=== PATIENT | female | born 1975 | race Caucasian/White ===

== ENCOUNTER 2021-01-06 14:52 | Outpatient (CLI) | payer OTHER, SELFPAY ==
--- NOTE | ~2021-01-06 | XR_ITS ---
XR lumbar spine 2-3V DATE: 01/06/2021 15:08 INDICATION: Low back pain following lifting injury one week ago TECHNIQUE: AP, lateral, coned lateral lumbosacral views COMPARISON: None FINDINGS: No fracture or bone destruction is evident. The included lower thoracic and lumbar pedicles are intact. Moderately prominent degenerative disc disease at T12-L1. There is minimal degenerative spurring of the lumbar spine and relative preservation of lumbar disc s paces. The sacroiliac joints are intact. IMPRESSION: Moderately prominent degenerative disc disease at T12-L1 Mild degenerative disc disease of the lumbar spine No fracture Reviewed, dictated and finalized at location A.
== END 2021-01-06 14:53 | disposition home or self-care (01) ==
PROVIDERS: PCP Family Medicine; Visit Provider Physician Assistant
DX: M47.815 Spondylosis without myelopathy or radiculopathy, thoracolumbar region (principal)
CPT/HCPCS: 72100

== ENCOUNTER 2024-09-28 13:06 | Outpatient (CLI) | payer OTHER, SELFPAY ==
--- OUTSIDE RECORDS SUMMARY | 2024-09-28 13:09 | XMS_ITS | Clinical Summary ---
Author Organization [employer] [facility] [employer] Address [address] [place] [address] Care Team Providers Care Chief Transfer And Pumphouse Operator Name Role Phone Carlos Eduardo Zimmerman MD Primary Care Provider [phone] Source Comments [facility] [employer],non-owned Affiliates and Associated Physician Practices is amultiple site organization consisting of ambulatory clinics and hospital sitesin [place], [place], [place] and [place]. This disclosure is being madepursuant to the Care Everywhere program and may not contain all information available regarding this patient. Last updated 18.[employer] [facility] Allergies No known active allergies Medications * Be aware that medications may not be up to date on this document. Alwaysverify current medications with the patient. Medication Sig Dispensed Refills Start Date End Date Status FLUoxetine (PROZAC) 40 MG capsule Take 40 mg by mouth once daily Active fluconazole (DIFLUCAN) 150 MG tablet Take one tab po x1 if symptoms occur, may repeat in 72 hours if symptoms persist 2 tablet 08/30/2019 Active Social History Tobacco Use Types Packs/Day Years Used Date Smoking Tobacco: Never Smokeless Tobacco: Never Sex and Gender Information Value Date Recorded Sex Assigned at Not on file Gender Identity Not on file Sexual Orientation Not on file Last Filed Vital Signs Vital Sign Reading Time Taken Comments Blood Pressure 118/78 08/30/2019 1:05 PM NEEDLE LOOM TENDER Pulse 77 08/30/2019 1:05 PM NEEDLE LOOM TENDER Temperature 36.8 ??C (98.3 ??F) 08/30/2019 1:05 PM CS T Respiratory Rate 20 08/30/2019 1:05 PM NEEDLE LOOM TENDER Oxygen Saturation 98% 08/30/2019 1:05 PM NEEDLE LOOM TENDER Inhaled Oxygen Concentration - - Weight 86.2 kg (190 lb) 08/30/2019 1:05 PM NEEDLE LOOM TENDER Height 162.6 cm (5' 4 ) 08/30/2019 1:05 PM NEEDLE LOOM TENDER Body Mass Index 32.61 08/30/2019 1:05 PM NEEDLE LOOM TENDER Plan of Treatment Health Maintenance Due Date Last Done Comments COLOGUARD (AGES 45-75) - COLON CA SCREENING 1974 COLON MONITORING 1974 COLONOSCOPY - COLON CA SCREENING 1974 CT COLONOGRAPHY - COLON CA SCREENING 1974 Colorectal Cancer Screening 1974 FIT - COLON CA SCREENING 1974 FLEX SIG - COLON CA SCREENING 1974 LIPID TESTING 1974 MAMMOGRAM 1974 PAP SMEAR 1974 HIV SCREENING 1989 HEPATITIS C SCREENING 11/04/1992 DTAP/TDAP/TD VACCINES (1 - Tdap) 1993 HEPATITIS B VACCINE (1 of 3 - 19+ 3-dose series) 1993 SCREENING FOR DIABETES 08/30/2019 COVID-19 VACCINE (1 - 2023-2 5 season) 2024 INFLUENZA VACCINE (#1) 2024 0 (Done Outside Per Patient) DEPRESSION SCREENING 08/29/2024 ZOSTER VACCINE (1 of 2) 2024 HIB VACCINE Aged Out No longer eligi ble based on patient's age to complete this topic HPV VACCINE Aged Out No longer eligi ble based on patient's age to complete this topic MENINGOCOCCAL (Group B) VACCINE Aged Out No longer eligible based on patient's age to complete this topic MENINGOCOCCAL VACCINE Aged Out No robby marek eligible based on patient's age to complete this topic PNEUMOCOCCAL VACCINE Aged Out No long er eligible based on patient's age to complete this topic Care Teams Chief Transfer And Pumphouse Operator Relationship Specialty Start Date End Date Carlos Eduardo Zimmerman MD [address] [place] [address] PCP - General Family Medicine 08/30/19
--- OUTSIDE RECORDS SUMMARY | 2024-09-28 13:09 | XMS_ITS | Clinical Summary ---
Author Organization [facility] Care Team Providers Care Fruit And Vegetable Classer Name Role Phone Unavailable Primary Care Provider Unavailabl e Social History Tobacco Use Types Packs/Day Years Used Date Smoking Tobacco: Never Assessed Comments Unknown Sex and Gender Information Value Date Recorded Sex Assigned at Not on file Legal Sex Female 3:37 PM NEON SIGN WORKER Gender Identity Not on file Sexual Orientation Not on file Plan of Treatment Health Maintenance Due Date Last Done Comments Hepatitis C Virus (HCV) Screening 1974 TdaP Immunization 1974 Pap Smear 11/10/1995 Cervical Cancer Screening (CCS) 2004 HPV/Cotest 2004 Discussion re Starting/Frequency of Mammograms 2014 Hepatitis B Immunization (3 of 3 - 19+ 3-dose series) 11/19/2014 09/24/2014, 02/19/2014 Colonoscopy 11/10/2019 Colorectal Cancer Screening 11/10/2019 Influenza Immunization (#1) 04/29/202405/29, 08/12/2015 SARS-COV-2 Immunization ( season) 2024 Cologuard 2024 Immunochemical Fecal Occult Blood 2024 Respiratory Syncytial Virus (RSV) Immunization (Adult) (1 - 1-dose 75+ series) 2049 Meningococcal Immunization (ACWY) Aged Out No longer eligible b ased on patient's age to complete this topic Pneumococcal Immunization Combined Aged Out No longer eligible b ased on patient's age to complete this topic Rotavirus Immunization Aged Out No lo nger eligible based on patient's age to complete this topic
--- OUTSIDE RECORDS SUMMARY | 2024-09-28 13:09 | XMS_ITS | Continuity of Care Document ---
Author Organization [facility] Address [address] [place] [address] [address] [place] [address] Phone Care Team Providers Care District Medical Examiner Name Role Phone Kimball OD, Mirza Unavailable Unavailable Procedures Procedure Date Eye Exam, New Patient Refraction Advance Directives Directive Yes / No Effective Date File Name No Information Encounters Encounter Description Practice Location Reason(s) For Visit Diagnoses Date Provider Providers Copied on Encounter [facility], [address] [place] [address] [address], [place], [place], [id number], [place] tel:[phone] [facility] No Information [phone] Kimball OD Mirza. [address] [facility] [address] , [address], [place], [address], [place]. tel:[phone] Referring Provider: Jamir Ordoñez [address] [facility], [place], [place], [facility]. tel:[phone] Family History Family Member Type Diagnosis Age At Onset No Information Payers Payer name Insurance type Covered constitution party ID Authoriza tion(s) Medicaid [facility] [id number] Social History Type Description Quantity Date Captured Comments Sex Female Smoking Status No Information Chief Complaint And Reason For Visit No Information Reason For Referral Reason For Referral No Information History Of Present Illness Encounter Date Complaint History Of Prese nt Illness No Information Functional Status Date Functional Assessmen t No Information Instructions Date Instruction Additional Infor mation No Information Assessments Type Assessment Date No Information Patient Care Teams Name Effective Dates (start - stop) Status Members No Information
--- OUTSIDE RECORDS SUMMARY | 2024-09-28 13:09 | XMS_ITS | Clinical Summary ---
Author Organization [facility] Address [address] [place] [phone] Phone Care Team Providers Care Group President Name Role Phone Carlos Eduardo Zimmerman MD Primary Care Provider Encounters Date Type Department Care Team Description 08/15/2024 2:45 PM VARNISH MIXER - 08/15/2024 11:59 PM VARNISH MIXER Hospital Encounter [facility] [address] [place] [id number] Screening mammogram, encounter for Discharge Disposition: Discharge to home or self care from Last 3 Months Medical History Medical History Date Comments Smoking previous Family History Medical History Relation Name Comments Ovarian cancer Mother Breast cancer Paternal Grandmother Thyroid cancer Neg Hx Relation Name Status Comments Mother Paternal Grandmother Social History Tobacco Use Types Packs/Day Years Used Date Smoking Tobacco: Never Assessed Comments Unknown Sex and Gender Information Value Date Recorded Sex Assigned at Not on file Legal Sex Female 6:24 AM CDT Gender Identity Not on file Sexual Orientation Not on file Obstetrics History Para Term AB IAB SAB Ectopic Multiple Livin g Live Births 3 3 3 Date Outcome GA Total Labor Labor/2nd/3rd Weight Sex Type Anes PTL Jennifer A1 A5 Name Clin Term Term Term Last Filed Vital Signs Vital Sign Reading Time Taken Comments Blood Pressure - - Pulse - - Temperature - - Respiratory Rate - - Oxygen Saturation - - Inhaled Oxygen Concentration - - Weight - - Height 162.6 cm (5' 4 ) 08/15/2024 3:00 PM VARNISH MIXER Body Mass Index - - Plan of Treatment Health Maintenance Due Date Last Done Comments Cervical Cancer Screening 1974 Colon Cancer Screening-Colonoscopy 1974 Depression Screening 1974 Hepatitis C Screening 1974 DTaP/Tdap/Td Vaccine (1 - Tdap) 1985 Regular Well Visit/Exam 18-64 1992 Covid-19 Vaccine (2023-2 5 season) 2024 10/14/2020, 09/16/2020 Influenza Vaccine (#1) 2024 , 06/15/2016, 08/12/2015 Breast Cancer Screening-Mammogram 08/15/2025 08/15/2024 Pneumococcal vaccine <65 Aged Out No longer eligible based on patient's age to complete this topic Procedures Procedure Name Priority Date/Time Associated Diagnosis Comments SCREENING MAMMOGRAM BILATERAL W KENRICK Schedule Routine, Read Routine (OP Routine) 08/15/2024 3:06 PM VARNISH MIXER Screening mammogram, encounter for from Last 3 Months Results * Screening Mammogram Bilateral W Kenrick (08/15/2024 3:06 PM VARNISH MIXER) Anatomical Region Laterality Modality Breast Bilateral Mammography 08/30/2024 8:08 AM VARNISH MIXER Impressions 08/30/2024 8:08 AM VARNISH MIXER No evidence of malignancy in either breast. FINAL ASSESSMENT: BI-RADS Category 1: Negative. RECOMMENDATION: Recommend return for annual screening mammogram in 12 months. ?? Electronically signed by: Cy Mac M.D. Narrative 08/30/2024 8:08 AM VARNISH MIXER EXAMINATION: BILATERAL SCREENING MAMMOGRAM COMPARISON: Prior imaging available for comparison. ??New baseline mammogram. TECHNIQUE: Full-field 2D and digital breast tomosynthesis (DBT) images were obtained. CAD was utilized. BREAST PARENCHYMAL COMPOSITION: ??There are scattered areas of fibroglandular density. FINDINGS: There is no suspicious mass, calcification, or distortion in either breast. us Self Screening Mammogram IMG MAMMO PROCEDURES Fi nal Result from Last [address] [place] [address] [facility] [employer] Address: [address] [place] [address] [facility] [employer] Address: [address] [place] [address] Care Teams Group President Relationship Specialty Start Date End Date Carlos Eduardo Zimmerman MD [address] [place] [address] PCP - General Family Medicine 06/15/22
--- OUTSIDE RECORDS SUMMARY | 2024-09-28 13:09 | XMS_ITS | Referral Summary ---
Author Organization [facility] [employer] Address [address] [place] [place] [address] Care Team Providers Care Banquet Set Up Person Name Role Phone Carlos Eduardo Zimmerman MD Primary Care Provider [phone] Source Comments [facility],non-owned Affiliates and Associated Physician Practices is amultiple site organization consisting of ambulatory clinics and hospital sitesin [place], [place], [place] and [place]. This disclosure is being madepursuant to the Care Everywhere program and may not contain all information available regarding this patient. Last updated 18.[employer] Allergies No known active allergies Medications * [...] Comments Blood Pressure 118/78 08/30/2019 1:05 PM KINESIOLOGIST Pulse 77 08/30/2019 1:05 PM KINESIOLOGIST Temperature 36.8 ??C (98.3 ??F) 08/30/2019 1:05 PM CS T Respiratory Rate 20 08/30/2019 1:05 PM KINESIOLOGIST Oxygen Saturation 98% 08/30/2019 1:05 PM KINESIOLOGIST Inhaled Oxygen Concentration - - Weight 86.2 kg (190 lb) 08/30/2019 1:05 PM KINESIOLOGIST Height 162.6 cm (5' 4 ) 08/30/2019 1:05 PM KINESIOLOGIST Body Mass Index 32.61 08/30/2019 1:05 PM KINESIOLOGIST Plan of Treatment Not on file Care Teams Banquet Set Up Person Relationship Specialty Start Date End Date Carlos Eduardo Zimmerman MD [address] [place] [address] PCP - General Family Medicine 08/30/19
--- OUTSIDE RECORDS SUMMARY | 2024-09-28 13:09 | XMS_ITS | Referral Summary ---
Author Organization [facility] Address [address] [place] [phone] Phone Care Team Providers Care Teacher Dramatics Name Role Phone Carlos Eduardo Zmimerman MD Primary Care Provider Encounters Date Type Department Care Team Description 08/15/2024 2:45 PM CUSTOMER SERVICE AND SALES CONSULTANT - 08/15/2024 11:59 PM CUSTOMER SERVICE AND SALES CONSULTANT Hospital Encounter [facility] [address] [place] [id number] Screening mammogram, encounter for Discharge Disposition: Discharge to home or self care from Last 3 Months Social History Tobacco Use Types Packs/Day Years [...] cm (5' 4 ) 08/15/2024 3:00 PM CUSTOMER SERVICE AND SALES CONSULTANT Body Mass Index - - Plan of Treatment Not on file Procedures Procedure Name Priority Date/Time Associated Diagnosis Comments SCREENING MAMMOGRAM BILATERAL W KENRICK Schedule Routine, Read Routine (OP Routine) 08/15/2024 3:06 PM CUSTOMER SERVICE AND SALES CONSULTANT Screening mammogram, encounter for from Last 3 Months Results * Screening Mammogram Bilateral W Kenrick (08/15/2024 3:06 PM CUSTOMER SERVICE AND SALES CONSULTANT) Anatomical Region Laterality Modality Breast Bilateral Mammography 08/30/2024 8:08 AM CUSTOMER SERVICE AND SALES CONSULTANT Impressions 08/30/2024 8:08 AM CUSTOMER SERVICE AND SALES CONSULTANT No evidence of malignancy in either breast. FINAL ASSESSMENT: BI-RADS Category 1: Negative. RECOMMENDATION: Recommend return for annual screening mammogram in 12 months. ?? Electronically signed by: Cy Mac M.D. Narrative 08/30/2024 8:08 AM CUSTOMER SERVICE AND SALES CONSULTANT EXAMINATION: BILATERAL SCREENING MAMMOGRAM COMPARISON: Prior imaging [...] nal Result from Last 3 Months Insurance [facility] [employer] Address: [facility] [address] [place] [address] [facility] [employer] Address: [facility] [id number] [place] [address] Care Teams Teacher Dramatics Relationship Specialty Start Date End Date Carlos Eduardo Zimmerman MD [address] [facility] [address] [place] [address] PCP - General Family Medicine 06/15/22
--- OUTSIDE RECORDS SUMMARY | 2024-09-28 13:09 | XMS_ITS | Patient Health Summary ---
Author Organization [facility] [employer] Address [address] [facility] [place] [address] Care Team Providers Care Gaming Floor Supervisor Name Role Phone Carlos Eduardo Zimmerman MD Primary Care Provider [phone] Note from [facility],non-owned Affiliates and Associated Physician Practices is amultiple site organization consisting of ambulatory clinics and hospital sitesin [place], [place], [place] and [place]. This disclosure is being madepursuant to the Care Everywhere program and may not contain all information available regarding this patient. Last updated 18.[facility] [employer] Allergies No known active allergies Medications * Be aware that medications may not be up to date on this document. Alwaysverify current medications with the patient. * FLUoxetine (PROZAC) 40 MG capsule Take 40 mg by mouth once daily * fluconazole (DIFLUCAN) 150 MG tablet(Started 08/30/2019) Take one tab po x1 if symptoms occur, may repeat in 72 hours if symptoms persist Social History Tobacco Use Types Packs/Day Years Used Date Smoking Tobacco: Never Smokeless Tobacco: Never Sex and Gender Information Value Date Recorded Sex Assigned at Not on file Gender Identity Not on file Sexual Orientation Not on file Last Filed Vital Signs Vital Sign Reading Time Taken Comments Blood Pressure 118/78 08/30/2019 1:05 PM RN DISEASE MANAGEMENT Pulse 77 08/30/2019 1:05 PM RN DISEASE MANAGEMENT Temperature 36.8 ??C (98.3 ??F) 08/30/2019 1:05 PM CS T Respiratory Rate 20 08/30/2019 1:05 PM RN DISEASE MANAGEMENT Oxygen Saturation 98% 08/30/2019 1:05 PM RN DISEASE MANAGEMENT Inhaled Oxygen Concentration - - Weight 86.2 kg (190 lb) 08/30/2019 1:05 PM RN DISEASE MANAGEMENT Height 162.6 cm (5' 4 ) 08/30/2019 1:05 PM RN DISEASE MANAGEMENT Body Mass Index 32.61 08/30/2019 1:05 PM RN DISEASE MANAGEMENT Procedures * SARS-COV-2 (COVID-19) IN HOUSE(Performed 07/07/2020) Performed for Cough Results * [facility]PLOYEE [facility] COVID LAB ([facility]) (07/07/2020 3:25 PM RN DISEASE MANAGEMENT) COVID-19 PCR Not detected Not detected 07/08/2020 7:12 PM RN DISEASE MANAGEMENT [facility] Microbiology SPECIMEN FROM NASOPHARYNGEAL STRUCTURE / Unknown Collection / Unknown 07/07/2020 3:25 PM RN DISEASE MANAGEMENT 07/07/2020 3:25 PM RN DISEASE MANAGEMENT Narrative [facility] - 07/08/2020 7:12 PM RN DISEASE MANAGEMENT This Real Time RT-PCR assay was developed and its performance characteristics determined by [facility]. This test has been authorized by the Food and Drug administration (FDA)under an Emergency Use Authorization (EUA). This test has been validated in accordance with the FDA's guidance document Policy for Diagnostic Testing in Laboratories Certified to perform High Complexity Testing under CLIA prior to Emergency Use Authorization for Coronavirus Disease-2019 during the Public Health Emergency issued on October 27, 2019. FDA independent review of this validation is pending. This test is only authorized for the duration of time the declaration that circumstances exist justifying the authorization of emergency use of in vitro diagnostic tests for detection of SARS-CoV-2 virus and/or diagnosis of COVID-19 infection under section 564(b)(1) of the Act, 21 U.S.C 360bbb-3 (b)(1), unless the authorization is terminated or revoked sooner. Fact Sheets for this EUA assay are available upon request. Cony Espinoza HIGH SCHOOL MATH TEACHER-ONCOLOGY REP LAB - MICROBIOLOG Y ORDERABLES [facility] [address] [place] [address], [facility] [[email or web address]] [phone] Care Teams Gaming Floor Supervisor Relationship Specialty Start Date End Date Carlos Eduardo Zimmerman MD [address] [place] [address] PCP - General Family Medicine 08/30/19
--- OUTSIDE RECORDS SUMMARY | 2024-09-28 13:09 | XMS_ITS | Clinical Summary ---
Author Organization [facility] Address [address] [place] [address]. [place], [place] [address] [place] [address] Care Team Providers Care Typesetter Apprentice Name Role Phone Temo Guerra MD Primary Care Provider Hmamad loyola Immunizations Name Administration Dates Next Due MODERNA COVID-19 (12+) MRNA, LNP-S, PF, 100 MCG/ 0.5 ML DOSE 10/14/2020,09/16/2020 Social History Tobacco Use Types Packs/Day Years Used Date Smoking Tobacco: Former Comments Unknown Sex and Gender Information Value Date Recorded Sex Assigned at Not on file Legal Sex Female 10:30 PM CDT Gender Identity Not on file Sexual Orientation Not on file Last Filed Vital Signs Vital Sign Reading Time Taken Comments Blood Pressure 132/88 01/28/2016 8:38 AM CDT Pulse 79 01/28/2016 8:38 AM CDT Temperature - - Respiratory Rate - - Oxygen Saturation - - Inhaled Oxygen Concentration - - Weight 97.5 kg (215 lb) 01/28/2016 8:38 AM CDT Height 162.6 cm (5' 4 ) 01/28/2016 8:38 AM CDT Body Mass Index 36.9 01/28/2016 8:38 AM CDT Plan of Treatment Health Maintenance Due Date Last Done Comments Cervical Cancer Screening Pa p Smear (Age 30 to 64) Every 3 Years 1974 Colorectal Cancer Screening Colonoscopy (10 Years) 1974 Annual Physical 1977 Hepatitis C 1992 DTaP, Tdap and Td Vaccines ( 1 - Tdap) 1993 Hepatitis B Vaccines (1 of 3 - 19+ 3-dose series) 1993 Cervical Cancer Screening Pa p with HPV Testing (Age 30 to 64) Every 5 Years 2004 Cervical Cancer Screening wi th HPV 2004 Mammogram Screening 2014 COVID-19 Vaccine (3 - 2023-2 5 season) 2024 10/14/2020, 09/16/2020 Influenza Adult (#1) 2024 06/15/2016, 08/12/2015 Meningococcal B Vaccine Aged Out No l onger eligible based on patient's age to complete this topic Meningococcal Vaccine Aged Out No robby marek eligible based on patient's age to complete this topic Pneumococcal Vaccine: Pediatrics (0 to 5 Years) and At-Risk Patients (6 to 64 Years) Aged Out No longer eligible b ased on patient's age to complete this topic RSV Immunizations Under 20 Months Aged Out No longer eligible b ased on patient's age to complete this topic Care Teams Typesetter Apprentice Relationship Specialty Start Date End Date Temo Guerra MD PCP - General 01/28/16
[2024-09-28 14:02] LABS: Influenza A QL RT-PCR Negative (Negative); Influenza B QL RT-PCR Negative (Negative); RSV RNA, RT-PCR Negative (Negative); SARS-CoV-2 RNA PCR Negative (Negative)
== END 2024-09-28 13:07 | disposition home or self-care (01) ==
LOC: ANHLAB 13:07
PROVIDERS: PCP Family Medicine; Visit Provider Physician Assistant
DX: R05.9 Cough, unspecified (principal)
CPT/HCPCS: 87637